=== PATIENT | male | born 1990 | race African-American/Black ===

== ENCOUNTER 2017-11-04 23:12 | Emergency (ER) | payer SELFPAY ==
[~2017-11-04] VITALS: Ht 182.9 cm; Wt 72.0 kg
[2017-11-04] MEDS ORDERED: HYDROGEN PEROXIDE 118 ML SOLUTION TP ONE (23:45)
[2017-11-05 01:06] VITALS: BP 138/82
== END 2017-11-05 01:08 | disposition home or self-care (01) ==
LOC: EMS 23:13
DX: H61.23 Impacted cerumen, bilateral (principal); F12.90 Cannabis use, unspecified, uncomplicated; F17.210 Nicotine dependence, cigarettes, uncomplicated
CPT/HCPCS: 69210; 99284